=== PATIENT | female | born 1960 | race African-American/Black ===

== ENCOUNTER 2017-04-29 14:05 | Emergency (ER) | payer MEDICAID ==
[~2017-04-29] VITALS: Ht 167.6 cm; Wt 95.3 kg
[2017-04-29 14:18] VITALS: BP 149/87
[2017-04-29] MEDS ORDERED: NAPR250T1 PO (14:22)
--- NOTE | 2017-04-29 14:23 | NUR ---
PT STS MIGRAINE BEDOYA AND ADDS INTENSE NECK AND BILATERAL SHOULDER PAIN.
--- NOTE | 2017-04-29 14:28 | NUR ---
DR JOEL EVALUATING AAO PT AT BEDSIDE
--- NOTE | 2017-04-29 14:30 | NUR ---
56/F BIB FRIEND C/O MIGRAINE BEDOYA AND NAUSEA STARTED YESTERDAY. TOOK NAPROXEN, NO RELIEF. HX MIGRAINE BEDOYA AX PCN RX NAPROXEN . DENIES V/D; SKIN IS PINK/WARM/DRY; AAOX4 WITH EVEN AND STEADY GAIT; LUNGS CLEAR BL; HR EVEN AND REGULAR; PT DENIES ANY FEVER, CP, SOB, OR COUGH AT THIS TIME; PATIENT STATES PAIN OF 10/10 AT THIS TIME; VSS; PATIENT POSITIONED FOR COMFORT; HOB ELEVATED; BEDRAILS UP X2; BED DOWN. ER MD MADE AWARE OF PT STATUS.
[2017-04-29] MEDS ORDERED: METOCLOPRAMIDE 10 MG/2 ML INJ VIAL IM ONE (14:35)
[2017-04-29] MEDS ORDERED: ACETAMINOPHEN EXTRA STRENGTH 500 MG TAB PO ONE (14:35)
[2017-04-29 15:26] VITALS: BP 136/88
--- NOTE | 2017-04-29 15:26 | NUR ---
Patient discharged with v/s stable. Written and verbal after care instructions given and explained. Patient alert, oriented and verbalized understanding of instructions. Ambulatory with steady gait. All questions addressed prior to discharge. ID band removed. Patient advised to follow up with PMD. Rx of REGLANCECIDRIN given. Patient educated on indication of medication including possible reaction and side effects. Opportunity to ask questions provided and answered.
== END 2017-04-29 15:26 | disposition home or self-care (01) ==
LOC: MED 14:05
DX: G43.909 Migraine, unspecified, not intractable, without status migrainosus (principal); K21.9 Gastro-esophageal reflux disease without esophagitis; Z79.899 Other long term (current) drug therapy; Z88.0 Allergy status to penicillin
CPT/HCPCS: 96372; 99283; J2765

== ENCOUNTER 2017-11-19 20:58 | Emergency (ER) | payer MEDICAID ==
[~2017-11-19] VITALS: Ht 167.6 cm; Wt 99.3 kg
[~2017-11-19 20:58] MED LIST: NAPR250T1 PO
[2017-11-19 21:11] VITALS: BP 136/87
--- NOTE | 2017-11-19 21:13 | NUR ---
PT RETURNED TO LOBBY
--- NOTE | 2017-11-19 21:55 | NUR ---
56/F CAME IN W C/O BILATERAL EAR PAIN X 2 DAYS. PT STATES " I THINK I COTTON BUD IS STUCK IN MY RT EAR". PT ALSO REPORTS BILATERAL FOOT PAIN X2 DAYS. NONTRAUMATIC. PMH: LUPUS
[2017-11-19] MEDS ORDERED: KETOROLAC 60 MG/2 ML VIAL IM ONE (22:30)
[2017-11-19 22:47] VITALS: BP 124/78
--- NOTE | 2017-11-19 22:47 | NUR ---
Patient discharged with v/s stable. Written and verbal after care instructions given and explained. Patient alert, oriented and verbalized understanding of instructions. Ambulatory with steady gait. All questions addressed prior to discharge. ID band removed. Patient advised to follow up with PMD. Rx of DEBROX 6.5%, TRAMADOL 50 MG given. Patient educated on indication of medication including possible reaction and side effects. Opportunity to ask questions provided and answered.
== END 2017-11-19 21:55 | disposition home or self-care (01) ==
LOC: MED 20:58
DX: H61.23 Impacted cerumen, bilateral (principal); G89.29 Other chronic pain; M32.9 Systemic lupus erythematosus, unspecified; K21.9 Gastro-esophageal reflux disease without esophagitis; Z79.899 Other long term (current) drug therapy; Z88.0 Allergy status to penicillin
CPT/HCPCS: 96372; 99283; J1885

== ENCOUNTER 2018-10-12 09:49 | Emergency (ER) | payer MEDICAID ==
[~2018-10-12] VITALS: Ht 167.6 cm; Wt 99.3 kg
[2018-10-12 09:53] VITALS: BP 134/91
--- NOTE | 2018-10-12 09:59 | NUR ---
BIB SELF. PT AAO X4 C/O R EAR ACHE, THROBBING 10/10 PAIN X TODAY COTTON STUCK IN THE EAR X 2 WEEKS. PT WAS SEEN BY PCP TO FLUSH THE COTTON OUT, BUT UNSUCCESSFUL. PT WAS PRESCRIBED MURINE, EAR WAX REMOVAL, BY PCP WITH NO RELIEF. PT HAS AN APPOINTMENT WITH ENT ON October. PT DENIES DIZZINESS, N/V. STEADY GAIT. HOB UP. BED SIDE RAILS UP X1. ON LOW BED POSITION, LOCKED. ER MADE AWARE OF PT STATUS.
--- NOTE | 2018-10-12 11:00 | NUR ---
DR DOMINGUEZ AT BEDSIDE FOR PT EVALUATION
[2018-10-12] MEDS ORDERED: KETOROLAC 60 MG/2 ML VIAL IM ONE (11:10)
[2018-10-12 11:37] VITALS: BP 130/88
--- NOTE | 2018-10-12 11:37 | NUR ---
Patient discharged with v/s stable. Written and verbal after care instructions given and explained. Patient alert, oriented and verbalized understanding of instructions. Ambulatory with steady gait. All questions addressed prior to discharge. ID band removed. Patient advised to follow up with PMD. Rx of Cortisporin Otic Suspension, Motrin given. Patient educated on indication of medication including possible reaction and side effects. Opportunity to ask questions provided and answered.
== END 2018-10-12 11:37 | disposition home or self-care (01) ==
LOC: MED 09:49
DX: H92.01 Otalgia, right ear (principal); K21.9 Gastro-esophageal reflux disease without esophagitis; M79.7 Fibromyalgia; Z88.0 Allergy status to penicillin; Z79.891 Long term (current) use of opiate analgesic
CPT/HCPCS: 96372; 99283; J1885

== ENCOUNTER 2019-07-27 02:58 | Emergency (ER) | payer MEDICAID ==
[~2019-07-27] VITALS: Ht 167.6 cm; Wt 88.5 kg
[2019-07-27 03:13] VITALS: BP 143/90
[2019-07-27] MEDS ORDERED: PROCHLORPERAZINE 10 MG/2 ML VIAL IVP ONE (03:20)
[2019-07-27] MEDS ORDERED: KETOROLAC 30 MG/ML VIAL IVP ONE (03:20)
--- NOTE | 2019-07-27 03:21 | NUR ---
PT AMBULATED TO BED.
--- NOTE | 2019-07-27 03:22 | NUR ---
LAKESHA AMAYA AT BEDSIDE TO EVAL PT.
--- NOTE | 2019-07-27 03:24 | NUR ---
58 Y/O FEMALE C/O MIGRAINE X 3DAYS. PT STATES IT GOT WORSE TODAY. RATES PAIN 10/10 AND DESCRIBES IT PRESSURE AND IS LOCATED ON THE OCCIPTAL REGION OF THE HEAD AND RADIATES TO POSTERIOR SIDE OF NECK. DENIES ANY HEAD TRUAMA OR INJURY OR FALLS. LIGHT AND SOUND SENSATIVITY PRESENT. NEAUSEA AND VOMITTNG PRESENT. VSS. A & O X4. STEADY GAIT. TOOK EXCEDRIN AT 2100 YESTERDAY. ALLERGIES: PENCILLIN PMH: FIBROMYALGIA, MIGRAINE.
[2019-07-27] MEDS ORDERED: NACL 0.9% 1,000 ML IV SCH (03:27)
[2019-07-27] MEDS ORDERED: diphenhydrAMINE 50 MG/ML VIAL IVP ONE (04:00)
[2019-07-27 04:52] VITALS: BP 143/90
== END 2019-07-27 04:52 | disposition home or self-care (01) ==
LOC: MED 02:58
DX: G43.909 Migraine, unspecified, not intractable, without status migrainosus (principal); M54.2 Cervicalgia; K21.9 Gastro-esophageal reflux disease without esophagitis; Z79.899 Other long term (current) drug therapy; Z88.0 Allergy status to penicillin
CPT/HCPCS: 96374; 96375; 99284; J0780; J1200; J1885; J7030

== ENCOUNTER 2019-12-30 12:55 | Emergency (ER) | payer MEDICAID ==
[~2019-12-30] VITALS: Ht 167.6 cm; Wt 95.3 kg
[2019-12-30 12:57] VITALS: BP 124/79
--- NOTE | 2019-12-30 13:02 | NUR ---
PATIENT AMBULATED TO BED 12.
--- NOTE | 2019-12-30 13:27 | NUR ---
X RAY AT BEDSIDE.
--- NOTE | 2019-12-30 13:34 | NUR ---
Mihir bermeo in [facility] - 12/30/19 at 1334 by OLGA LIDIA PT HAS BEEN TAKING BACK FROM CT SCAN VIA FELIPE.
[2019-12-30] MEDS ORDERED: ACETAMINOPHEN EXTRA STRENGTH 500 MG TAB PO ONE (14:25)
--- NOTE | 2019-12-30 14:37 | NUR ---
CHOCO SPLINTED GREAT TOE WITH 2ND TOE USING KERLIX--ALSO DAI BANDAGE FOR SUPPORT TO FOOT----NO SWELLING OR DISCOLORATION +2 PEDAL PULSES BEFORE AND AFTER WRAP
[2019-12-30 14:39] VITALS: BP 143/91
== END 2019-12-30 14:46 | disposition home or self-care (01) ==
LOC: MED 12:55
DX: S93.502A Unspecified sprain of left great toe, initial encounter (principal); M79.672 Pain in left foot; M19.072 Primary osteoarthritis, left ankle and foot; I63.9 Cerebral infarction, unspecified; Z88.0 Allergy status to penicillin; Z79.899 Other long term (current) drug therapy; W22.8XXA Striking against or struck by other objects, initial encounter; Y93.89 Activity, other specified; Y92.89 Other specified places as the place of occurrence of the external cause; Y99.8 Other external cause status
CPT/HCPCS: 73660; 99283; Q0092

== ENCOUNTER 2020-10-20 13:14 | Emergency (ER) | payer MEDICAID ==
[~2020-10-20] VITALS: Ht 167.6 cm; Wt 101.2 kg
[2020-10-20 13:22] VITALS: BP 143/85
--- NOTE | 2020-10-20 14:01 | NUR ---
PATIENT AMBULATED TO BED 07 WITH STEADY GAIT
--- NOTE | 2020-10-20 14:15 | NUR ---
42 y.o female experiencing bilateral leg pain dominantly on the left leg. pain of 8/10 on the left leg and 5/10 on the right leg. experiencing this since last . VSS. AAOx4. PMH: Fibromyalgia Allergies: Acetaminophen, penicillins, gabapentin, hydrocodone
--- NOTE | 2020-10-20 14:50 | NUR ---
PA at bedside examining patient
--- NOTE | 2020-10-20 15:02 | NUR ---
Patient taken to x-ray via wheelchair by tech.
[2020-10-20] MEDS ORDERED: IBUP-2213 PO (16:59)
[2020-10-20 17:05] VITALS: BP 143/85
== END 2020-10-20 17:05 | disposition home or self-care (01) ==
LOC: MED 13:14
DX: M79.604 Pain in right leg (principal); M79.605 Pain in left leg; Z88.0 Allergy status to penicillin; Z88.8 Allergy status to other drugs, medicaments and biological substances; Z79.899 Other long term (current) drug therapy; Z86.73 Personal history of transient ischemic attack (TIA), and cerebral infarction without residual deficits
CPT/HCPCS: 73562; 93971; 99284

== ENCOUNTER 2021-09-05 21:17 | Emergency (ER) | payer MEDICAID ==
[~2021-09-05] VITALS: Ht 167.6 cm; Wt 99.8 kg
[~2021-09-05 21:17] MED LIST changes: +IBUP-2213 PO
[2021-09-05 21:36] VITALS: BP 170/90
--- NOTE | 2021-09-05 21:36 | NUR ---
TO BED AMBULATORY
--- NOTE | 2021-09-05 22:03 | NUR ---
urine poc done.
[2021-09-05] MEDS ORDERED: CIPR500T9 PO (22:33)
[2021-09-05] MEDS ORDERED: PYR100 PO (22:33)
[2021-09-05 22:56] VITALS: BP 166/85
--- NOTE | 2021-09-05 22:58 | NUR ---
Patient discharged with v/s stable. Written and verbal after care instructions given and explained. Patient alert, oriented and verbalized understanding of instructions. Ambulatory with steady gait. All questions addressed prior to discharge. ID band removed. Patient advised to follow up with PMD. Rx of CIPROFLACIN AND PYRIDIUM given. Patient educated on indication of medication including possible reaction and side effects. Opportunity to ask questions provided and answered.
[2021-09-05 23:29] LABS: BILIRUBIN,URINE NEGATIVE (NEGATIVE); BLOOD, URINE 2+ (NEGATIVE); COLOR,URINE YELLOW (YELLOW); LEUKOCYTE ESTERASE ,URINE 2+ (NEGATIVE); NITRITE, URINE POSITIVE (NEGATIVE); UGLUCOSE TRACE (NEGATIVE)
[2021-09-05 23:47] LABS: APPEARANCE,URINE SLIGHTLY HAZY (CLEAR)
[2021-09-05 23:49] LABS: RBC,URINE 0-5 /HPF (0-5)
[2021-09-05 23:50] LABS: WBC,URINE 20-60 /HPF (0-5)
== END 2021-09-05 22:13 | disposition home or self-care (01) ==
LOC: MED 21:17
DX: N39.0 Urinary tract infection, site not specified (principal); Z88.0 Allergy status to penicillin; Z88.5 Allergy status to narcotic agent; Z88.8 Allergy status to other drugs, medicaments and biological substances; Z79.899 Other long term (current) drug therapy
CPT/HCPCS: 81001; 87086; 99283

== ENCOUNTER 2022-10-01 21:50 | Emergency (ER) | payer MEDICAID ==
[~2022-10-01] VITALS: Ht 167.6 cm; Wt 97.5 kg
[~2022-10-01 21:50] MED LIST changes: +CIPR500T9 PO; +PYR100 PO
[2022-10-01 22:08] VITALS: BP 153/84
--- NOTE | 2022-10-01 22:18 | NUR ---
PT TO BED 01
[2022-10-01] MEDS ORDERED: DICYCLOMINE HCL LIQUID 20 MG, ALUMINUM HYD/MAG/SIMETHICONE 30 ML, LIDOCAINE VISCOUS 2% ... PO ONE ×3 (22:25)
[2022-10-01] MEDS ORDERED: DICYCLOMINE HCL LIQUID 10 MG/5 ML UDC ONE (22:39)
[2022-10-01] MEDS ORDERED: ALUMINUM HYD/MAG/SIMETHICONE 30 ML UDC ONE (22:39)
--- NOTE | 2022-10-01 22:45 | NUR ---
C/O abdominal pain x 3 days. Patient reported, had abdominal pain for 3 days , no fever, no N/V/D. PMHx: GERD, Migraine
[2022-10-01] MEDS ORDERED: MAG-27 PO (23:22)
--- NOTE | 2022-10-01 23:35 | NUR ---
Patient discharged with v/s stable. Written and verbal after care instructions given and explained. Patient alert, oriented and verbalized understanding of instructions. Ambulatory with steady gait. All questions addressed prior to discharge. ID band removed. Patient advised to follow up with PMD. Rx of mylanta given. Patient educated on indication of medication including possible reaction and side effects. Opportunity to ask questions provided and answered.
== END 2022-10-01 23:35 | disposition home or self-care (01) ==
LOC: MED 21:50
DX: K29.70 Gastritis, unspecified, without bleeding (principal); Z88.0 Allergy status to penicillin; Z88.5 Allergy status to narcotic agent; Z88.8 Allergy status to other drugs, medicaments and biological substances; Z79.899 Other long term (current) drug therapy
CPT/HCPCS: 74018; 99283; Q0092